=== PATIENT | female | born 1960 | race African-American/Black ===

== ENCOUNTER 2021-05-13 11:07 | Inpatient (IN) | payer OTHER ==
[~2021-05-13] VITALS: Ht 162.6 cm; Wt 150.8 kg
[~2021-05-13 11:07] MED LIST: ASPIRIN325 MG PO; BUPROPION XL150 MG PO; BUSPIRONE HCL10 MG PO; CALCIUM 500 MG1 EAC1 PO; COLCRYS0.6 MG PO; DICLOFENAC SODI75 MG PO; FERROUS SULFAT325 MG PO; FLONASE ALLER15.8 ML; HYGROTON 25MG T25 MG PO; LAMOTRIGINE100 MG PO; LOPRESSOR100 MG PO; LORATADINE10 MG PO; LOVENOX40 MG/0.4 SQ; PAXIL30 MG PO; PERCOCET 5-3251 EACH PO; PRILOSEC20 MG PO; RISPERDAL4 MG PO; SODIUM CHLORIDE15 M1 OU; TRAZODONE 100M100 MG PO; VICODIN 10/3251 EACH PO; ZESTRIL40 MG PO
[2021-05-13 12:57] LABS: BASOPHIL 0.6 % (0-2); EOSINOPHIL 2.2 % (0-5); HCT 36.4 % (37.0-47.0); HGB 12.6 g/dl (12.5-16.0); LYMPHOCYTE 13.3 % (15-48); MCH 38.5 pg (25.0-31.0); MCHC 34.6 g/dL (32.0-36.0); MCV 111.3 fL (78.0-100.0); MONOCYTE 9.7 % (0-12); MPV 9.4 fL (6.0-9.5); NEUTROPHIL 73.4 % (41-80); NRBC 0; PLT 161 K/uL (150-400); RBC 3.27 M/uL (4.20-5.40); RDW 12.4 % (11.5-14.0)
[2021-05-13 13:03] LABS: BILIRUBIN 1+ mg/dL (NEGATIVE); BLOOD 3+ Ery/uL (NEGATIVE); CLARITY CLEAR (CLEAR); COLOR YELLOW (YELLOW); GLUCOSE (U) NORMAL (NORMAL); LEUKOCYTES 1+ Leu/uL (NEGATIVE); NITRITE NEGATIVE (NEGATIVE); PROTEIN TRACE (LOW) mg/dL (NEGATIVE); SPECIFIC GRAVITY 1.025 (1.001-1.030)
[2021-05-13 13:10] LABS: BACTERIA 1+
[2021-05-13 13:34] LABS: ALBUMIN 3.2 g/dL (3.4-5.0); BILIRUBIN - TOTAL 1.5 mg/dL (0.2-1.0); BUN/CREAT RATIO (CALC) 15.2 RATIO; CREATININE 0.66 mg/dL (0.51-0.95); GLOBULIN (CALCULATION) 4.4 g/dL; MAGNESIUM 1.8 mg/dL (1.8-2.4); POTASSIUM 3.6 mmol/L (3.5-5.1); TOTAL PROTEIN 7.6 g/dL (6.4-8.2)
[2021-05-13 13:39] LABS: LACTIC ACID 0.5 mmol/L (0.4-1.9)
[2021-05-14 01:17] LABS: CORONAVIRUS 2019 SARS-COV-2 NEGATIVE (NEGATIVE); INFLUENZA A NAA NEGATIVE (NEGATIVE)
[2021-05-14 06:01] LABS: BASOPHIL 0.4 % (0-2); EOSINOPHIL 3.3 % (0-5); HCT 32.2 % (37.0-47.0); HGB 11.6 g/dl (12.5-16.0); LYMPHOCYTE 11.5 % (15-48); MCH 40.1 pg (25.0-31.0); MCV 111.4 fL (78.0-100.0); MONOCYTE 9.6 % (0-12); MPV 9.3 fL (6.0-9.5); NEUTROPHIL 73.9 % (41-80); NRBC 0.4; PLT 135 K/uL (150-400); RBC 2.89 M/uL (4.20-5.40); RDW 12.2 % (11.5-14.0); WBC 4.6 K/uL (4.0-10.5)
[2021-05-14 06:12] LABS: BUN/CREAT RATIO (CALC) 6.2 RATIO; CREATININE 0.65 mg/dL (0.51-0.95); POTASSIUM 3.4 mmol/L (3.5-5.1)
[2021-05-14] MEDS ORDERED: TRAZODONE 50MG50 MG PO (09:57)
[2021-05-14] MEDS ORDERED: NEURONTIN100 MG PO (09:57)
[2021-05-14] MEDS ORDERED: RISPERDAL 1MG TA1 MG PO (09:58)
[2021-05-14] MEDS ORDERED: PAXIL10 MG PO (09:58)
[2021-05-14] MEDS ORDERED: TOPROL XL 50 MG50 MG PO (09:59)
[2021-05-14] MEDS ORDERED: BUSPAR5 MG PO (09:59)
[2021-05-14] MEDS ORDERED: VALSARTAN-HCTZ1 EAC3 PO (10:00)
[2021-05-14] MEDS ORDERED: ALDACTONE25 MG PO (10:01)
[2021-05-14] MEDS ORDERED: NORVASC5 MG PO (10:01)
[2021-05-14] MEDS ORDERED: ELAVIL50 MG PO (10:02)
--- NOTE | 2021-05-14 14:56 | NUR ---
05/14/21 Ms. Squires lives alone. She has home 02, hoverround, hospital bed and ramp. She is followed by , although she does not know the name of the agency. Ms. Squires is interested in parul placement. She chose [facility], [facility], [facility], or [facility]. Referrals have been submitted to each agency.
[2021-05-15 05:53] LABS: BASOPHIL 0.4 % (0-2); EOSINOPHIL 2.8 % (0-5); HGB 11.2 g/dl (12.5-16.0); LYMPHOCYTE 16.3 % (15-48); MCH 39.2 pg (25.0-31.0); MCV 111.9 fL (78.0-100.0); MONOCYTE 11.8 % (0-12); NEUTROPHIL 67.2 % (41-80); NRBC 0; PLT 118 K/uL (150-400); RBC 2.86 M/uL (4.20-5.40); RDW 12.3 % (11.5-14.0); WBC 4.7 K/uL (4.0-10.5)
[2021-05-15 06:18] LABS: BUN/CREAT RATIO (CALC) 5.9 RATIO; CREATININE 0.68 mg/dL (0.51-0.95); MAGNESIUM 1.8 mg/dL (1.8-2.4); POTASSIUM 3.6 mmol/L (3.5-5.1)
--- NOTE | 2021-05-15 15:59 | NUR ---
05/15/21 [facility] accepted Ms. Squires. She chose [facility]. [facility] will accept on 05/16 providing patient has a BM. Patient will meet criteria for EMS as she is a total lift. - [facility] was given to [facility]. Please fax DS to: [phone] and call report to: [phone].
[2021-05-16] MEDS ORDERED: NEURONTIN100 MG PO (12:20)
== END 2021-05-16 16:00 | DRG 557 ==
LOC: FER 11:07 → FMS 23:54
PROVIDERS: Emergency Medicine; Nurse Practitioner; ADMIT Internal Medicine
DX: M62.82 Rhabdomyolysis (principal); G93.41 Metabolic encephalopathy; Z68.43 Body mass index [BMI] 50.0-59.9, adult; E66.01 Morbid (severe) obesity due to excess calories; Z20.822 Contact with and (suspected) exposure to COVID-19; I10 Essential (primary) hypertension; Z96.653 Presence of artificial knee joint, bilateral; K59.00 Constipation, unspecified; G89.4 Chronic pain syndrome; F32.9 Major depressive disorder, single episode, unspecified; F41.1 Generalized anxiety disorder; G47.30 Sleep apnea, unspecified; R31.9 Hematuria, unspecified; I87.8 Other specified disorders of veins; W19.XXXA Unspecified fall, initial encounter; Z90.49 Acquired absence of other specified parts of digestive tract; Z88.8 Allergy status to other drugs, medicaments and biological substances; Z98.51 Tubal ligation status; Z91.81 History of falling; Z98.890 Other specified postprocedural states
CPT/HCPCS: 36415; 70450; 72131; 73502; 73552; 80048; 80053; 81001; 82550; 83605; 83690; 83735; 84145; 84484; 84550; 85025; 87088; 97110; 97161; 97166; 97530; 97535; J1170; J1650; J1885; J2405; J3370; J7030; J7050; Q9967; U0002

== ENCOUNTER 2021-07-20 11:12 | Emergency (ER) | payer OTHER ==
[~2021-07-20 11:12] MED LIST changes: +ALDACTONE25 MG PO; +BUSPAR5 MG PO; +ELAVIL50 MG PO; +NEURONTIN100 MG PO; +NORVASC5 MG PO; +PAXIL10 MG PO; +RISPERDAL 1MG TA1 MG PO; +TOPROL XL 50 MG50 MG PO; +TRAZODONE 50MG50 MG PO; +VALSARTAN-HCTZ1 EAC3 PO
[2021-07-20 12:52] LABS: BILIRUBIN - TOTAL 0.7 mg/dL (0.2-1.0); BUN/CREAT RATIO (CALC) 14.7 RATIO; CREATININE 0.68 mg/dL (0.51-0.95); GLOBULIN (CALCULATION) 4.1 g/dL; POTASSIUM 4.7 mmol/L (3.5-5.1); TOTAL PROTEIN 7.1 g/dL (6.4-8.2)
[2021-07-20 12:54] LABS: BASOPHIL 0.7 % (0-2); EOSINOPHIL 4.9 % (0-5); HCT 35.7 % (37.0-47.0); HGB 11.6 g/dl (12.5-16.0); LYMPHOCYTE 22.4 % (15-48); MCH 34.5 pg (25.0-31.0); MCHC 32.5 g/dL (32.0-36.0); MCV 106.3 fL (78.0-100.0); MONOCYTE 9.4 % (0-12); MPV 10.6 fL (6.0-9.5); NEUTROPHIL 61.3 % (41-80); NRBC 0; RBC 3.36 M/uL (4.20-5.40); RDW 13.2 % (11.5-14.0); WBC 4.5 K/uL (4.0-10.5)
[2021-07-20 13:10] LABS: PLT 161 K/uL (150-400)
--- NOTE | 2021-07-20 16:00 | NUR ---
REFERRED TO ED TO SPEAK WITH PT REGARDING PLACEMENT. PT WAS RECENTLY DISCHARGED FROM [facility]. SHE STATES THAT SHE CANNOT TAKE CARE OF HERSELF AND WANTS A REHAB PLACEMENT. TC TO NAVI AT [facility], SHE STATED PT WAS DISCHARGED. SHE COULD TAKE CARE OF HERSELF WITH ASSITANCE. SHE WAS UNABLE TO HAVE A HH THAT WOULD ACCEPT HER.\ NIC WOULD LIKE [facility]. SENT REFERRAL TO THEM. WAS ADVISED THAT THERE IS NOT ENOUGH INFORMATION ON PATIENT TO FOR ADMISSION. IT DOES NOT APPEAR THAT PT REQUIRES ANY SKILLED CARE. ADVISED EUNICE IN THE ED. SHE WILL ADVISE PATIENT AND SEND HER HOME.
== END 2021-07-20 15:55 | disposition home or self-care (01) ==
LOC: FER 11:12
PROVIDERS: Emergency Medicine
DX: L89.152 Pressure ulcer of sacral region, stage 2 (principal); I10 Essential (primary) hypertension; E66.01 Morbid (severe) obesity due to excess calories; Z88.6 Allergy status to analgesic agent
CPT/HCPCS: 36415; 80053; 82150; 82550; 84145; 84484; 85025; 99283